=== PATIENT | female | born 1965 | race African-American/Black ===

== ENCOUNTER 2024-08-07 23:07 | Emergency (ER) | payer OTHER, SELFPAY ==
--- NOTE | 2024-08-07 23:18 | ED.PSYCH ---
HPI - Psych General Stated Complaint: psych eval Time Seen by Provider: 08/07/24 23:15 Source: EMS Mode of arrival: EMS Limitations: other History of Present Illness ED Provider: Dr. Sussy Rosario HPI Narrative: Patient comes to the emergency room via ambulance from [facility]. According to the staff, patient is more agitated than usual and they asked EMS to bring her to the hospital. Patient is awake, alert, seems very happy, yelling and laughing incoherently. Patient states she feels well Related Data Allergies Allergy/AdvReac Type Severity Reaction Status Date / Time benztropine [From Cogentin] Allergy Unknown Unknown Verified 08/07/24 23:17 haldol Allergy Unknown Unknown Uncoded 08/07/24 23:17 Review of Systems Review of Systems: Yes Unobtainable due to mental status and Other Physical Exam Vital Signs: Vital Signs: Last Vital Signs Temp 98.6 F 08/07/24 23:36 Pulse 120 H 08/07/24 23:36 Resp 22 H 08/07/24 23:36 BP 140/66 H 08/07/24 23:36 Pulse Ox 97 08/07/24 23:36 O2 Del Method Room Air 08/07/24 23:36 Const: Other: Appearance: Alert. No acute distress, laughing, screaming Eyes: Pupils equal, round and reactive to light. ENT: Pharynx normal. Neck: Normal inspection. Neck supple. No lymph nodes noted. No crepitus CVS: Normal heart rate and rhythm. Pulses normal. Normal S1 and S2 Respiratory: No respiratory distress. Breath sounds normal. No Wheezing. No rales Abdomen: Soft and nontender. No rigidity. No distention. Skin: Skin warm and dry. Normal skin color. Normal skin turgor. Extremities: No lower extremity edema. No Lacerations. No Rash Neuro: No slurred speech. CN 2 through 12 grossly intact Psych: Laughing, redirectable, talking to herself incoherently Course Course Course Narrative: We will obtain basic labs, urinalysis. Patient has no complaints Medical Decision Making Medical Decision Making [facility] Narrative: My interpretation of labs: Patient's white blood cell count within normal limits, patient is a bit anemic, no previous labs for comparison. Platelets normal. Chemistry does not show any significant abnormality, glucose 235, normal LFTs. Urinalysis is a contaminant, large amount of squamous epithelial cells. -patient's behavior like to be psychiatric Differential Diagnosis Differential Diagnoses: The differential diagnosis associated with the presentation includes (UTI, dementia, psychiatric disorder) Lab Data 08/07/24 23:32 08/07/24 23:32 Labs: Lab Results 08/07/24 08/07/24 Range/Units 23:32 23:48 WBC 9.9 (4.8-10.8) X10*3/uL RBC 4.07 L (4.20-5.50) X10*6/uL Hgb 10.4 L (12.0-16.0) g/dl Hct 33.4 L (37.0-47.0) % MCV 82.1 (80.0-98.0) fL MCH 25.6 L (27.0-33.0) pg MCHC 31.1 (31.0-35.0) g/dl RDW 17.2 H (11.0-16.0) % Plt Count 325 (160-400) X10*3/uL MPV 9.9 (9.4-12.3) fL Immature Gran % (Auto) 0.3 (0.0-0.4) % Neut % (Auto) 61.5 (45-73) % Lymph % (Auto) 28.2 (20-40) % Mora % (Auto) 8.6 (2-11) % Eos % (Auto) 0.9 (0-4) % Baso % (Auto) 0.5 (0-2) % Lymph # (Auto) 2.8 (1.2-4.9) X10*3/uL [place]a # (Auto) 0.9 (0.1-1.2) X10*3/uL Eos # (Auto) 0.1 (0.0-0.4) X10*3/uL Baso # (Auto) 0.1 (0.0-0.2) X10*3/uL Abs Immat Gran (auto) 0.03 (0.00-0.03) X10*3/uL Absolute Neuts (auto) 6.1 (2.0-8.3) x10*3/uL Absolute Nucleated RBC 0.000 (0.0-0.012) X10*3/uL Nucleated RBC % (auto) 0.0 (0.0-0.2) /100WBC Sodium 144 (135-145) mmol/L Potassium 3.9 (3.3-5.1) mmol/L Chloride 109 H (96-108) mmol/L Carbon Dioxide 25 (22-29) mmol/L Anion Gap 14 (12-20) BUN 17 H (9-16) mg/dL Creatinine 0.89 (0.5-1.4) mg/dL Estim Creat Clear Calc TNP Estimated GFR > 60 Random Glucose 235 H (60-115) mg/dL Calcium 10.0 (8.4-10.2) mg/dL Total Bilirubin 0.3 (0.0-1.0) mg/dL Direct Bilirubin 0.1 (0.0-0.5) mg/dL AST 27 (5-31) U/L ALT 28 (0-31) U/L Alkaline Phosphatase 77 (39-117) U/L Total Protein 7.2 (6.5-8.0) g/dL Albumin 3.5 (3.5-5.0) g/dL Urine Color Yellow Urine Appearance Cloudy Urine pH 5.5 (5.0-9.0) Ur Specific [place] 1.020 (1.005-1.025) Urine Protein Trace (Neg-Trace) mg/dL Urine Glucose (UA) Negative (Negative) mg/dL Urine Ketones Trace (Negative) mg/dL Urine Blood Negative (Negative) Urine Nitrite Negative (Negative) Ur Leukocyte Esterase Small (1+) H (Negative) Urine RBC 0-2 (0-2) /HPF Urine WBC 11-20 H (0-5) /HPF Ur Squamous Epith Cells >20 (0-2) /HPF Urine Bacteria Trace (None Seen) Hyaline Casts 3-5 (0-2) /LPF Ethyl Alcohol < 10 mg/dL Discharge Plan Discharge Clinical Impression: Agitation Patient Disposition: Xfer Other Transfer Details: [facility] Instructions: Anxiety (ED) Additional Instructions: Please follow-up with your primary care physician tomorrow. If you have any worsening or new symptoms, please return to the emergency room or call 911
[2024-08-07 23:36] VITALS: BP 140/66; PULSE 120; RESP 22; TEMP 37; O2SAT 97
[2024-08-07 23:36] LABS: MANUAL DIFF FLAG NO
[2024-08-07 23:37] LABS: Basophils Absolute Auto 0.1 X10*3/uL (0.0-0.2); Basophils Percent Auto 0.5 % (0-2); Eosinophils Absolute Auto 0.1 X10*3/uL (0.0-0.4); Eosinophils Percent Auto 0.9 % (0-4); Hematocrit 33.4 % (37.0-47.0); Hemoglobin 10.4 g/dl (12.0-16.0); Imm Gran Abs Auto 0.03 X10*3/uL (0.00-0.03); Imm Gran Pct Auto 0.3 % (0.0-0.4); Lymphocytes Absolute Auto 2.8 X10*3/uL (1.2-4.9); Lymphocytes Percent Auto 28.2 % (20-40); Mean Corpuscular HGB Conc 31.1 g/dl (31.0-35.0); Mean Corpuscular Hemoglobin 25.6 pg (27.0-33.0); Mean Corpuscular Volume 82.1 fL (80.0-98.0); Mean Platelet Volume 9.9 fL (9.4-12.3); Monocytes Absolute Auto 0.9 X10*3/uL (0.1-1.2); Monocytes Percent Auto 8.6 % (2-11); Neutrophils Absolute Auto 6.1 x10*3/uL (2.0-8.3); Neutrophils Percent Auto 61.5 % (45-73); Platelet Count 325 X10*3/uL (160-400); Red Blood Count 4.07 X10*6/uL (4.20-5.50); Red Cell Distribution Width 17.2 % (11.0-16.0); White Blood Count 9.9 X10*3/uL (4.8-10.8)
[2024-08-07 23:55] LABS: Alanine Aminotransferase 28 U/L (0-31); Albumin Level 3.5 g/dL (3.5-5.0); Alkaline Phosphatase 77 U/L (39-117); Anion Gap 14 (12-20); Aspartate Amino Transferase 27 U/L (5-31); Bilirubin Direct 0.1 mg/dL (0.0-0.5); Bilirubin Total 0.3 mg/dL (0.0-1.0); Blood Urea Nitrogen 17 mg/dL (9-16); Carbon Dioxide 25 mmol/L (22-29); Chloride 109 mmol/L (96-108); Estimated Glomerular Filt Rate > 60; Ethanol < 10 mg/dL; Glucose Random 235 mg/dL (60-115); Potassium 3.9 mmol/L (3.3-5.1); Sodium 144 mmol/L (135-145); Total Protein 7.2 g/dL (6.5-8.0)
[2024-08-07 23:56] LABS: Appearance Urine Cloudy; Color Urine Yellow; Glucose Urine UA Negative (Negative); Leukocyte Esterase Urine Small (1+) (Negative); Nitrite Urine Negative (Negative); PH 5.5 (5.0-9.0); UMIC TRIGGER UACC YES; Urine Blood Negative (Negative); Urine Ketones Trace mg/dL (Negative); Urine Protein Trace mg/dL (Neg-Trace)
[2024-08-07 23:59] LABS: Bacteria Urine Trace (None Seen); RBC Urine 0-2 /HPF (0-2); Squamous Epithelial Cell Urine >20 /HPF (0-2); UACC Culture Trigger YES
[2024-08-08 00:06] VITALS: BP 143/66; PULSE 120; RESP 18; TEMP 36.8; O2SAT 96; BMI 27.5
[2024-08-08 00:09] LABS: Amphetamine Screen Urine Not Detected (Not Detect); Barbiturates, Urine Not Detected (Not Detect); Benzodiazepines Screen Urine Not Detected (Not Detect); Buprenorphine Scr Not Detected (Not Detect); Cannabinoid Screen Urine Not Detected (Not Detect); Cocaine Screen Urine Not Detected (Not Detect); Fentanyl, urine Not Detected (Not Detect); Methadone Screen, Urine Not Detected (Not Detect); Opiate Screen Urine Not Detected (Not Detect); Oxycodone Screen Urine Not Detected (Not Detect); Phencyclidine Screen Urine Not Detected (Not Detect)
--- NOTE | 2024-08-08 00:12 | PC.NURSE ---
Pt brought in from [place], raised voice, yelling erratic thought and speech, laying in bed on back feet in the air. Labs obtained, pt ambulated by t/w, tech and security urine obtained, no need for straight cath.
[2024-08-08 00:50] VITALS: BP 143/66; PULSE 120; RESP 18; TEMP 36.8; O2SAT 96
== END 2024-08-08 01:10 | disposition other institution (70) ==
PROVIDERS: Emergency Provider Emergency Medicine
DX: R45.1 Restlessness and agitation (principal); Z79.899 Other long term (current) drug therapy; Z51.81 Encounter for therapeutic drug level monitoring
CPT/HCPCS: 36415; 51702; 80048; 80076; 80307; 81001; 85025; 87086; 99283; 99284; 99285